=== PATIENT | female | born 1950 | race Caucasian/White ===

== ENCOUNTER 2021-02-14 11:37 | Inpatient (IN) | payer OTHER ==
[~2021-02-14] VITALS: Ht 157.5 cm; Wt 84.5 kg
[2021-02-14 13:44] LABS: Urine Amorphous Crystal MOD /hpf (None Seen); Urine Bacteria FEW /hpf (None Seen); Urine Blood 1+ /uL (Negative); Urine Specific Gravity 1.028 (1.001-1.035); Urine WBC 16 /hpf (0 - 5)
[2021-02-14 14:04] LABS: Basophils # (auto) 0 10 ^3/uL (0-0.2); Basophils % (auto) 0.2 % (0.0-2.0); Eosinophils # (auto) 0 10 ^3/uL (0-0.8); Hemoglobin 11.1 g/dL (12.2-16.2); Lymphocytes # (auto) 0.4 10 ^3/uL (0.4-5.4); Lymphocytes % (auto) 4.3 % (10.0-50.0); Mean Corpuscular Hemoglobin 28.3 pg (28.0-32.0); Mean Corpuscular Hgb Conc. 32.6 g/dL (32.0-36.0); Monocytes # (auto) 0.5 10 ^3/uL (0-1.3); Monocytes % (auto) 6.1 % (0.0-12.0); Neutrophils # (auto) 7.9 10 ^3/uL (1.6-8.6); Neutrophils % (auto) 89.4 % (37.0-80.0); Red Blood Cells 3.91 10^6/uL (4.0-5.20); Red Cell Distribution Width 15.6 % (11.8-14.3); White Blood Cell 8.8 10^3/uL (4.4-10.8)
[2021-02-14 14:20] LABS: Albumin 2.6 g/dL (3.4-5.0); Calcium 8.1 mg/dL (8.5-10.1); Magnesium 2.3 mg/dL (1.6-2.6); Potassium 4.6 mmol/L (3.5-5.1)
[2021-02-14 14:26] LABS: Bilirubin, Total 0.3 mg/dL (0.2-1.0); Lactic Acid w/Reflex 2.1 mmol/L (0.4-2.0); Total Protein 8.2 g/dL (6.4-8.2)
[2021-02-14] MEDS ORDERED: cefTRIAXone 1GM/50ML D5W 50 ML IV ONE ×2 (14:45→16:00)
[2021-02-14] MEDS ORDERED: MORPHINE SULFATE INJECTION 2 MG/ML SYRG IV PRN ×2 (16:00)
[2021-02-14] MEDS ORDERED: HYDROcodone-ACET 5/325MG TAB PO PRN (16:00)
[2021-02-14] MEDS ORDERED: DEXTROSE (50%) 50ML SYRG IV PRN (16:00)
[2021-02-14] MEDS ORDERED: DOCUSATE SOD 100 MG CAP PO PRN (16:00)
[2021-02-14] MEDS ORDERED: NITROGLYCERIN 0.4 MG SL TAB SL PRN (16:00)
[2021-02-14] MEDS ORDERED: AZITHROMYCIN 500MG/ 250ML 250 ML IV ONE (16:00)
[2021-02-14] MEDS ORDERED: ONDANSETRON HCL 4 MG/2 ML VIAL IV PRN (16:00)
[2021-02-14] MEDS ORDERED: hydrALAZINE HCL 20 MG/ML VL IV PRN (16:30)
[2021-02-14] MEDS: SODIUM CHLORIDE 0.9% 1,000 ML IV SCH (16:59)
[2021-02-14 17:14] LABS: Cholesterol 87 mg/dL (< 200)
[2021-02-14 17:17] LABS: HDL Cholesterol 16 mg/dL (40-59); LDL Cholesterol 30 mg/dL (< 100); Triglycerides 200 mg/dL (< 150)
[2021-02-14] MEDS: ACCU-CHEK COMFORT CURVE STRIP VI SCH ×2 (18:15→22:04)
[2021-02-14] MEDS: InsuLIN REG 1unit/0.01ml Soln (100units/ml) SC SCH ×2 (18:15→22:00)
[2021-02-14 18:30] VITALS: BP 169/81
[2021-02-14] MEDS: ACETAMINOPHEN 325 MG TAB PO PRN (18:34)
[2021-02-14 22:16] VITALS: BP 127/60
[2021-02-15] MEDS: ACETAMINOPHEN 325 MG TAB PO PRN ×2 (04:09→15:37)
[2021-02-15 05:00] VITALS: BP 139/67
[2021-02-15 05:27] LABS: Basophils # (auto) 0 10 ^3/uL (0-0.2); Basophils % (auto) 0.4 % (0.0-2.0); Eosinophils # (auto) 0 10 ^3/uL (0-0.8); Eosinophils % (auto) 0.1 % (0.0-7.0); Hematocrit 30.8 % (36.0-46.0); Hemoglobin 10.1 g/dL (12.2-16.2); Lymphocytes # (auto) 0.4 10 ^3/uL (0.4-5.4); Lymphocytes % (auto) 5.9 % (10.0-50.0); Mean Corpuscular Hemoglobin 28.3 pg (28.0-32.0); Mean Corpuscular Hgb Conc. 32.8 g/dL (32.0-36.0); Mean Corpuscular Volume 86.3 fL (80.0-100.0); Monocytes # (auto) 0.4 10 ^3/uL (0-1.3); Monocytes % (auto) 5.6 % (0.0-12.0); Neutrophils # (auto) 5.9 10 ^3/uL (1.6-8.6); Red Blood Cells 3.57 10^6/uL (4.0-5.20); Red Cell Distribution Width 15.5 % (11.8-14.3); White Blood Cell 6.8 10^3/uL (4.4-10.8)
[2021-02-15 05:49] LABS: Albumin 2.4 g/dL (3.4-5.0); Calcium 8.1 mg/dL (8.5-10.1); Potassium 4.5 mmol/L (3.5-5.1)
[2021-02-15 05:53] LABS: BUN/Creatinine Ratio 26.4; Bilirubin, Total 0.4 mg/dL (0.2-1.0); Total Protein 7.7 g/dL (6.4-8.2)
[2021-02-15] MEDS: InsuLIN REG 1unit/0.01ml Soln (100units/ml) SC SCH ×4 (06:13→21:57)
[2021-02-15] MEDS: ACCU-CHEK COMFORT CURVE STRIP VI SCH ×4 (06:14→21:57)
[2021-02-15] MEDS: SODIUM CHLORIDE 0.9% 1,000 ML IV SCH (08:40)
[2021-02-15 09:00] VITALS: BP 122/60
[2021-02-15] MEDS ORDERED: OLME20TA53 PO (11:34)
[2021-02-15] MEDS ORDERED: HYDR200T36 PO (11:34)
[2021-02-15] MEDS ORDERED: MONT-8 PO (11:34)
[2021-02-15] MEDS ORDERED: ACET-1156 PO (11:34)
[2021-02-15] MEDS ORDERED: LORA-622 PO (11:34)
[2021-02-15] MEDS ORDERED: RISE150T PO (11:34)
[2021-02-15] MEDS ORDERED: PREG50CA PO (11:34)
[2021-02-15] MEDS ORDERED: FURO40TA4 PO (11:34)
[2021-02-15] MEDS ORDERED: ASPI325T4 PO (11:34)
[2021-02-15] MEDS ORDERED: ZIPR80CA37 PO (11:34)
[2021-02-15] MEDS ORDERED: METF-370 PO (11:34)
[2021-02-15] MEDS ORDERED: LOVA20TA4 PO (11:34)
[2021-02-15] MEDS ORDERED: POTA10TA51 PO (11:34)
[2021-02-15] MEDS ORDERED: OMEP20TA PO (11:34)
[2021-02-15] MEDS ORDERED: LEVO50TA7 PO (11:34)
[2021-02-15] MEDS ORDERED: ADAL40IN SC (11:34)
[2021-02-15] MEDS ORDERED: TRIA1SPR6 (11:34)
[2021-02-15] MEDS ORDERED: cefTRIAXone 1GM/50ML D5W 50 ML IV ONE (12:45)
[2021-02-15] MEDS ORDERED: AZITHROMYCIN 500MG/ 250ML 250 ML IV ONE (12:45)
[2021-02-15 13:00] VITALS: BP 170/80
[2021-02-15 13:36] VITALS: BP 124/61
[2021-02-15] MEDS: ALBUTEROL SULF 2.5 MG/0.5ML(0.5%) NEB SOLN NEB SCH ×3 (13:52→22:23)
[2021-02-15] MEDS: IPRATROPIUM BROM 0.5 MG/2.5ML INH SOL NEB SCH ×3 (13:53→22:23)
[2021-02-15] MEDS ORDERED: IOHEXOL 350 MG/ML 100ML IJ ONE (17:29)
[2021-02-15 17:35] VITALS: BP 131/65
[2021-02-15] MEDS: methylPREDNISolone SOD SUCC 40 MG/ML VL IV SCH (18:59)
[2021-02-15] MEDS: FUROSEMIDE 40 MG TAB PO SCH (19:02)
[2021-02-15] MEDS: PREGABALIN 25 MG CAP PO SCH (21:57)
[2021-02-15] MEDS: POTASSIUM CHL 10 Meq TABLET PO SCH (21:57)
[2021-02-15 22:00] VITALS: BP 130/66
[2021-02-15] MEDS ORDERED: ATORVASTATIN 20 MG TAB PO SCH (22:00)
[2021-02-15] MEDS: ZIPRASIDONE 40 MG PO SCH (22:34)
[2021-02-16] MEDS: methylPREDNISolone SOD SUCC 40 MG/ML VL IV SCH ×3 (00:04→12:36)
[2021-02-16] MEDS: SODIUM CHLORIDE 0.9% 1,000 ML IV SCH (01:20)
[2021-02-16 06:10] LABS: Basophils # (auto) 0 10 ^3/uL (0-0.2); Basophils % (auto) 0.3 % (0.0-2.0); Eosinophils # (auto) 0 10 ^3/uL (0-0.8); Hematocrit 29.4 % (36.0-46.0); Hemoglobin 9.8 g/dL (12.2-16.2); Lymphocytes # (auto) 0.4 10 ^3/uL (0.4-5.4); Lymphocytes % (auto) 8.1 % (10.0-50.0); Mean Corpuscular Hemoglobin 28.3 pg (28.0-32.0); Mean Corpuscular Hgb Conc. 33.2 g/dL (32.0-36.0); Mean Corpuscular Volume 85.2 fL (80.0-100.0); Monocytes # (auto) 0.2 10 ^3/uL (0-1.3); Monocytes % (auto) 3.6 % (0.0-12.0); Neutrophils # (auto) 4.3 10 ^3/uL (1.6-8.6); Red Blood Cells 3.45 10^6/uL (4.0-5.20); Red Cell Distribution Width 16.1 % (11.8-14.3); White Blood Cell 4.9 10^3/uL (4.4-10.8)
[2021-02-16] MEDS: POTASSIUM CHL 10 Meq TABLET PO SCH ×2 (06:12→15:40)
[2021-02-16] MEDS: InsuLIN REG 1unit/0.01ml Soln (100units/ml) SC SCH ×2 (06:12→12:43)
[2021-02-16] MEDS: ACCU-CHEK COMFORT CURVE STRIP VI SCH ×2 (06:13→12:33)
[2021-02-16 06:36] LABS: Albumin 2.2 g/dL (3.4-5.0); Calcium 7.6 mg/dL (8.5-10.1); Potassium 4.6 mmol/L (3.5-5.1)
[2021-02-16 06:41] LABS: BUN/Creatinine Ratio 28.7; Bilirubin, Total 0.3 mg/dL (0.2-1.0)
[2021-02-16] MEDS ORDERED: LEVOTHYROXINE SODIUM 25 MCG TAB PO SCH (07:00)
[2021-02-16] MEDS: IPRATROPIUM BROM 0.5 MG/2.5ML INH SOL NEB SCH ×3 (07:33→14:16)
[2021-02-16] MEDS: ALBUTEROL SULF 2.5 MG/0.5ML(0.5%) NEB SOLN NEB SCH ×3 (07:33→14:15)
[2021-02-16 09:00] VITALS: BP 131/71
[2021-02-16] MEDS ORDERED: cefTRIAXone 1GM/50ML D5W 50 ML IV SCH (09:00)
[2021-02-16] MEDS: FUROSEMIDE 40 MG TAB PO SCH (09:32)
[2021-02-16] MEDS ORDERED: SODIUM BICARBONATE 50ML VIAL 50 ML in SOD CHL 0.45% 1,000 ML IV SCH (10:00)
[2021-02-16] MEDS: ZIPRASIDONE 40 MG PO SCH (10:00)
[2021-02-16] MEDS ORDERED: ASPirin-EC 81 mg tab PO SCH (10:00)
[2021-02-16] MEDS ORDERED: AZITHROMYCIN 500MG/ 250ML 250 ML IV SCH (10:00)
[2021-02-16] MEDS ORDERED: PANTOPRAZOLE 40 MG TAB PO SCH (10:00)
[2021-02-16] MEDS ORDERED: hydrOXYchloroQUINE SULFATE 200 MG TAB PO SCH (10:00)
[2021-02-16] MEDS: PREGABALIN 25 MG CAP PO SCH (10:01)
[2021-02-16 11:16] VITALS: BP 131/71
[2021-02-16 13:00] VITALS: BP 129/63
[2021-02-16 16:00] VITALS: BP 140/68
== END 2021-02-16 16:55 | disposition home or self-care (01) | DRG 193 ==
LOC: ER 11:37 → CENTRAL 16:03
PROVIDERS: ADMIT Family Medicine; ATTEND Family Medicine
DX: J18.9 Pneumonia, unspecified organism (principal); J96.20 Acute and chronic respiratory failure, unspecified whether with hypoxia or hypercapnia; I50.43 Acute on chronic combined systolic (congestive) and diastolic (congestive) heart failure; N17.0 Acute kidney failure with tubular necrosis; E46 Unspecified protein-calorie malnutrition; R65.10 Systemic inflammatory response syndrome (SIRS) of non-infectious origin without acute organ dysfunction; L03.90 Cellulitis, unspecified; N39.0 Urinary tract infection, site not specified; I11.0 Hypertensive heart disease with heart failure; E11.9 Type 2 diabetes mellitus without complications; M19.90 Unspecified osteoarthritis, unspecified site; E83.51 Hypocalcemia; E66.9 Obesity, unspecified; D63.8 Anemia in other chronic diseases classified elsewhere; Z20.822 Contact with and (suspected) exposure to COVID-19; E03.9 Hypothyroidism, unspecified; E78.00 Pure hypercholesterolemia, unspecified; E78.5 Hyperlipidemia, unspecified; F31.9 Bipolar disorder, unspecified; Z68.34 Body mass index [BMI] 34.0-34.9, adult; Z85.828 Personal history of other malignant neoplasm of skin; Z87.442 Personal history of urinary calculi; Z79.84 Long term (current) use of oral hypoglycemic drugs
CPT/HCPCS: 36415; 71045; 71275; 76775; 80053; 80061; 81001; 82306; 82962; 83036; 83605; 83735; 83880; 83970; 84100; 84443; 84484; 85025; 85379; 87040; 87086; 87426; 93005; 93306; 93970; 94640; 96365; G0378; J0696; J1815; J2405